=== PATIENT | female | born 1985 | race Caucasian/White ===

== ENCOUNTER 2021-05-06 08:22 | Emergency (ER) | payer OTHER ==
[~2021-05-06] VITALS: Ht 170.2 cm; Wt 63.5 kg
[2021-05-06] MEDS ORDERED: PROZAC20 M1 PO (08:39)
[2021-05-06 08:47] LABS: ABSOLUTE EOSINOPHILS 0.1 thou/uL (0.0-0.7); ABSOLUTE LYMPHOCYTES 1.2 thou/uL (0.8-5.3); ABSOLUTE MONOCYTES 0.5 thou/uL (0.0-1.2); BASOPHILS 0.9 %; EOSINOPHILS 2.6 %; HEMOGLOBIN 13.8 gm/dL (12.0-15.0); LYMPHOCYTES 43.1 %; MCH 31.3 pg (26.0-34.0); MCHC 35.3 g/dL (28.0-37.0); MCV 88.7 fL (80.0-100.0); MONOCYTES 18.4 %; MPV 7.6 fl. (7.2-11.1); NUCLEATED RBCS 0 /100WBC; PLATELET COUNT* 219 thou/uL (150-400); RBC 4.39 mil/uL (4.20-5.00); RDW-CV 12.9 % (10.5-14.5); WBC 2.8 thou/uL (4.0-11.0)
[2021-05-06 08:55] LABS: CALCIUM 8.8 mg/dL (8.5-10.1); CREATININE 0.6 mg/dL (0.6-1.3); POTASSIUM 3.9 mmol/L (3.5-5.1)
[2021-05-06 09:07] LABS: ALBUMIN 4.2 g/dL (3.4-5.0); MAGNESIUM 2.1 mg/dL (1.8-2.4); TOTAL BILIRUBIN 0.8 mg/dL (<0.1-1.0); TOTAL PROTEIN 7.8 g/dL (6.4-8.2)
[2021-05-06] MEDS ORDERED: ACYCLOVIR 800800 MG PO (10:00)
[2021-05-06] MEDS ORDERED: PREDNISONE 10 M10 M1 PO (10:00)
[2021-05-06] MEDS ORDERED: HYDROCODON-ACE1 EAC7 PO (10:00)
[2021-05-06 10:13] VITALS: BP 117/81
--- NOTE | 2021-05-06 14:16 | EKG ---
[place] [address] ELECTROCARDIOGRAM REPORT Name: [facility] Room: [facility]#: [id number] Admission: 05/06/21 Attend Phys: Discharge: 05/06/21 Date of : 83 Date of Service: 05/06/21827 Report #: [id number] THIS REPORT FOR: //name// [facility] ED Test Date: 2021-05-06 Test Time: 08:28:36 Pat Name: [facility] Department: Room: Gender: Copier Technician: PAM : 1985 Requested By: Umer Caldwell Order Number: [id number] MD: Juan Coley Measurements Intervals [place] Rate: 78 P: 71 W[place]: 158 QRS: 38 QRSD: 93 T: 21 QT: 418 QTc: 477 Interpretive Statements Sinus rhythm No previous ECG available for comparison Electronically Signed On 05-06-2021 14:16:02 CDT by Juan Coley [email or web address] <ELECTRONICALLY SIGNED> By: Juan Coley MD, [facility] 05/06/21 1416 7 7 Juan Coley MD, FACC /EPI
== END 2021-05-06 10:13 | disposition home or self-care (01) ==
LOC: M.ERS 08:22
PROVIDERS: Emergency Medicine Emergency Medical Services
DX: B02.9 Zoster without complications (principal); R07.89 Other chest pain; Z79.899 Other long term (current) drug therapy